=== PATIENT | male | born 1960 | race Caucasian/White ===

== ENCOUNTER 2025-08-06 15:00 | Inpatient (IN) ==
[2025-08-06] MEDS ORDERED: IOPAMIDOL 100 ML BOTTLE IV ONE ×2 (15:01)
[2025-08-06 15:46] LABS: Basophils # (Auto) 0.03 K/mcL (0.00-0.30); Basophils % (Auto) 0.2 % (0.0-2.0); Eosinophils # (Auto) 0 K/mcL (0.00-0.70); Eosinophils % (Auto) 0 % (0.0-7.0); Hematocrit 41.9 % (40.1-51.0); Hemoglobin 14.0 g/dL (13.7-17.5); Lymphocytes # (Auto) 1.01 K/mcL (1.50-4.80); Lymphocytes % (Auto) 5.7 % (15.5-49.0); Mean Corpuscular HGB Conc 33.4 g/dL (31.0-36.0); Monocytes # (Auto) 0.81 K/mcL (0.10-0.90); Monocytes % (Auto) 4.6 % (1.0-12.0); Neutrophils % (Auto) 89.0 % (38.0-78.0); Platelet Count 254 K/mcL (140-440); RBC 4.34 M/mcL (4.63-6.08); WBC 17.6 K/mcL (4.5-11.0)
[2025-08-06 16:07] LABS: ALT/SGPT 11 U/L (<40); AST/SGOT 37 U/L (<40); Albumin 3.7 gm/dL (3.2-5.2); Albumin/Globulin Ratio 1.1 (1.0-2.3); Alkaline Phosphatase 93 U/L (39-117); Anion Gap 13.0 (8.0-16.0); Bilirubin,Total 0.7 mg/dL (0.1-1.0); Blood Urea Nitrogen 16 mg/dL (8-23); Calcium 8.9 mg/dL (8.6-10.4); Carbon Dioxide 22 mmol/L (22-30); Chloride 101 mmol/L (96-108); Globulin 3.5 gm/dL (2.2-3.7); Glucose 127 mg/dL (70-105); Potassium 4.2 mmol/L (3.3-5.1); Sodium 136 mmol/L (133-145)
[2025-08-06] MEDS: 0.9 % SODIUM CHLORIDE 1,000 ML IV ONE (16:07)
[2025-08-06 16:41] LABS: Barbiturate Screen,Urine None detected; Benzodiazepines Screen,Urine None detected; Fentanyl, Urine Screen None Detected; Opiate Screen,Urine None detected; Oxycodone, Urine Screen None detected; Phencyclidine Screen,Urine None detected
[2025-08-06 16:54] LABS: Bacteria,Urine 0 /hpf (0); Bilirubin,Urine SMALL mg/dL (Negative); Calcium Oxalate Crystals,Urine Few /hpf; Color,Urine Yellow; Glucose,Urine (UA) NEGATIVE (Negative); Ketones,Urine >=80 mg/dL (Negative); Leukocyte Esterase,Urine NEGATIVE /uL (Negative); Mucus,Urine Many /hpf; PH,Urine 6.0 (5.0-9.0); Protein,Urine TRACE mg/dL (Negative); Specific Gravity,Urine >= 1.030 (1.000-1.035); Urobilinogen,Urine 1.0 mg/dL
[2025-08-06] MEDS: FUROSEMIDE 40 MG/4 ML VIAL IV ONE (17:57)
[2025-08-06] MEDS: FLEETS ADULT 1 DOSE ENEMA PR ONE (18:56)
[2025-08-06] MEDS ORDERED: POLYETHYLENE GLYCOL 3350 17 GM PACKET PO PRN (20:40)
[2025-08-06] MEDS ORDERED: MAGNESIUM SULFATE 2 GM/50 ML BAG IV PRN (20:40)
[2025-08-06] MEDS ORDERED: SENNOSIDES 1 TABLET PO PRN (20:40)
[2025-08-06] MEDS ORDERED: POTASSIUM CHLORIDE 20 MEQ TABLET PO PRN (20:40)
[2025-08-06] MEDS ORDERED: ACETAMINOPHEN 325 MG TABLET PO PRN (20:40)
[2025-08-06] MEDS ORDERED: IPRATROPIUM/ALBUTEROL 3 ML AMPUL.NEB NEB PRN (20:40)
[2025-08-06] MEDS ORDERED: POTASSIUM CHLORIDE 40 MEQ in DEXTROSE 5% IN WATER 500 ML IV PRN (20:40)
[2025-08-06] MEDS ORDERED: METOCLOPRAMIDE 10 MG/2 ML VIAL IV PRN (20:40)
[2025-08-06] MEDS ORDERED: PROPRANOLOL 40 MG TABLET PO PRN (20:44)
[2025-08-06] MEDS: POLYETHYLENE GLYCOL 3350 17 GM PACKET PO ONE (21:00)
[2025-08-06] MEDS: DOCUSATE SODIUM 100 MG CAPSULE PO SCH (21:00)
[2025-08-06] MEDS: TAMSULOSIN 0.4 MG CAPSULE PO SCH (21:00)
[2025-08-06] MEDS: GABAPENTIN 400 MG CAPSULE PO SCH (21:01)
[2025-08-06] MEDS: MIRTAZAPINE 15 MG TABLET PO SCH (21:01)
[2025-08-07 05:59] LABS: Hematocrit 40.5 % (40.1-51.0); Hemoglobin 13.3 g/dL (13.7-17.5); Mean Corpuscular HGB Conc 32.8 g/dL (31.0-36.0); Platelet Count 227 K/mcL (140-440); RBC 4.14 M/mcL (4.63-6.08); WBC 15.7 K/mcL (4.5-11.0)
[2025-08-07 06:21] LABS: ALT/SGPT 12 U/L (<40); AST/SGOT 34 U/L (<40); Albumin 3.5 gm/dL (3.2-5.2); Albumin/Globulin Ratio 1.0 (1.0-2.3); Alkaline Phosphatase 92 U/L (39-117); Anion Gap 10.0 (8.0-16.0); Bilirubin,Direct 0.4 mg/dL (<0.3); Bilirubin,Total 0.7 mg/dL (0.1-1.0); Blood Urea Nitrogen 15 mg/dL (8-23); Calcium 8.6 mg/dL (8.6-10.4); Carbon Dioxide 26 mmol/L (22-30); Chloride 99 mmol/L (96-108); Globulin 3.5 gm/dL (2.2-3.7); Glucose 107 mg/dL (70-105); Phosphorous 3.2 mg/dL (2.5-4.5); Potassium 3.9 mmol/L (3.3-5.1); Sodium 135 mmol/L (133-145); Triglycerides 100 mg/dL (<150); Uric Acid 7.0 mg/dL (2.5-8.0)
[2025-08-07] MEDS: LEVOTHYROXINE 25 MCG TABLET PO SCH (07:25)
[2025-08-07 07:42] LABS: RBC Morphology NORMAL (Normal)
[2025-08-07] MEDS ORDERED: LOSARTAN 50 MG TABLET PO SCH (09:00)
[2025-08-07] MEDS: FUROSEMIDE 40 MG/4 ML VIAL IV SCH (09:35)
[2025-08-07] MEDS: SPIRONOLACTONE 25 MG TABLET PO SCH (09:35)
[2025-08-07] MEDS: POLYETHYLENE GLYCOL 3350 17 GM PACKET PO SCH (09:36)
[2025-08-07] MEDS: ENOXAPARIN 40 MG/0.4 ML SYRINGE SQ SCH (09:36)
[2025-08-07] MEDS: METHYLPHENIDATE HCL 10 MG PO SCH (10:56)
[2025-08-07] MEDS: cefTRIAXone 1 GM VIAL IV SCH (11:45)
[2025-08-07] MEDS: ONDANSETRON 4 MG/2 ML VIAL IV PRN (11:47)
[2025-08-07] MEDS: AZITHROMYCIN 500 MG in DEXTROSE 5% IN WATER 250 ML IV SCH (11:51)
[2025-08-07] MEDS: TEMAZEPAM 15 MG CAPSULE PO PRN (21:21)
[2025-08-08 06:35] LABS: Basophils # (Auto) 0.02 K/mcL (0.00-0.30); Basophils % (Auto) 0.2 % (0.0-2.0); Eosinophils # (Auto) 0.38 K/mcL (0.00-0.70); Eosinophils % (Auto) 3.6 % (0.0-7.0); Hematocrit 42.8 % (40.1-51.0); Hemoglobin 13.7 g/dL (13.7-17.5); Lymphocytes # (Auto) 2.52 K/mcL (1.50-4.80); Lymphocytes % (Auto) 24.0 % (15.5-49.0); Mean Corpuscular HGB Conc 32.0 g/dL (31.0-36.0); Monocytes # (Auto) 0.51 K/mcL (0.10-0.90); Monocytes % (Auto) 4.9 % (1.0-12.0); Neutrophils % (Auto) 66.8 % (38.0-78.0); Platelet Count 240 K/mcL (140-440); RBC 4.27 M/mcL (4.63-6.08); WBC 10.5 K/mcL (4.5-11.0)
[2025-08-08] MEDS: METOPROLOL TARTRATE 5 MG/5 ML VIAL IV PRN (08:13)
[2025-08-08] MEDS ORDERED: APIXABAN 2.5 MG TABLET PO SCH (09:00)
[2025-08-08 09:20] LABS: ALT/SGPT 13 U/L (<40); AST/SGOT 24 U/L (<40); Albumin 3.3 gm/dL (3.2-5.2); Albumin/Globulin Ratio 0.9 (1.0-2.3); Alkaline Phosphatase 93 U/L (39-117); Anion Gap 13.0 (8.0-16.0); Bilirubin,Direct 0.2 mg/dL (<0.3); Bilirubin,Total 0.4 mg/dL (0.1-1.0); Blood Urea Nitrogen 20 mg/dL (8-23); Calcium 8.7 mg/dL (8.6-10.4); Carbon Dioxide 29 mmol/L (22-30); Chloride 96 mmol/L (96-108); Globulin 3.7 gm/dL (2.2-3.7); Glucose 110 mg/dL (70-105); Phosphorous 3.2 mg/dL (2.5-4.5); Potassium 3.2 mmol/L (3.3-5.1); Sodium 138 mmol/L (133-145); Triglycerides 118 mg/dL (<150); Uric Acid 8.1 mg/dL (2.5-8.0)
[2025-08-08] MEDS: METOPROLOL TARTRATE 25 MG TABLET PO SCH (09:52)
[2025-08-08] MEDS: POTASSIUM CHLORIDE 20 MEQ TABLET PO PRN (10:00)
[2025-08-08] MEDS: APIXABAN 5 MG TABLET PO SCH (21:00)
[2025-08-09 05:55] LABS: Basophils # (Auto) 0.03 K/mcL (0.00-0.30); Basophils % (Auto) 0.3 % (0.0-2.0); Eosinophils # (Auto) 0.42 K/mcL (0.00-0.70); Eosinophils % (Auto) 3.7 % (0.0-7.0); Hematocrit 41.4 % (40.1-51.0); Hemoglobin 13.8 g/dL (13.7-17.5); Lymphocytes # (Auto) 2.78 K/mcL (1.50-4.80); Lymphocytes % (Auto) 24.3 % (15.5-49.0); Mean Corpuscular HGB Conc 33.3 g/dL (31.0-36.0); Monocytes # (Auto) 0.57 K/mcL (0.10-0.90); Monocytes % (Auto) 5.0 % (1.0-12.0); Neutrophils % (Auto) 66.3 % (38.0-78.0); Platelet Count 283 K/mcL (140-440); RBC 4.26 M/mcL (4.63-6.08); WBC 11.4 K/mcL (4.5-11.0)
[2025-08-09 07:16] LABS: ALT/SGPT 18 U/L (<40); AST/SGOT 25 U/L (<40); Albumin 3.3 gm/dL (3.2-5.2); Albumin/Globulin Ratio 0.9 (1.0-2.3); Alkaline Phosphatase 89 U/L (39-117); Anion Gap 11.0 (8.0-16.0); Bilirubin,Total 0.3 mg/dL (0.1-1.0); Blood Urea Nitrogen 24 mg/dL (8-23); Calcium 8.8 mg/dL (8.6-10.4); Carbon Dioxide 25 mmol/L (22-30); Chloride 102 mmol/L (96-108); Globulin 3.7 gm/dL (2.2-3.7); Glucose 101 mg/dL (70-105); Potassium 3.7 mmol/L (3.3-5.1); Sodium 138 mmol/L (133-145)
[2025-08-09] MEDS ORDERED: LISINOPRIL 2.5 MG TABLET PO SCH (09:00)
[2025-08-09] MEDS: buPROPion 150 MG TAB.XL.24H PO SCH (11:51)
[2025-08-09] MEDS: FUROSEMIDE 40 MG TABLET PO SCH (15:35)
[2025-08-10 07:01] LABS: ALT/SGPT 18 U/L (<40); AST/SGOT 25 U/L (<40); Albumin 3.2 gm/dL (3.2-5.2); Albumin/Globulin Ratio 0.9 (1.0-2.3); Alkaline Phosphatase 85 U/L (39-117); Anion Gap 11.0 (8.0-16.0); Bilirubin,Total 0.3 mg/dL (0.1-1.0); Blood Urea Nitrogen 24 mg/dL (8-23); Calcium 8.7 mg/dL (8.6-10.4); Carbon Dioxide 25 mmol/L (22-30); Chloride 101 mmol/L (96-108); Globulin 3.7 gm/dL (2.2-3.7); Glucose 99 mg/dL (70-105); Potassium 3.8 mmol/L (3.3-5.1); Sodium 137 mmol/L (133-145)
[2025-08-10 07:23] LABS: Basophils # (Auto) 0.05 K/mcL (0.00-0.30); Basophils % (Auto) 0.5 % (0.0-2.0); Eosinophils # (Auto) 0.39 K/mcL (0.00-0.70); Eosinophils % (Auto) 3.5 % (0.0-7.0); Hematocrit 43.2 % (40.1-51.0); Hemoglobin 14.2 g/dL (13.7-17.5); Lymphocytes # (Auto) 2.73 K/mcL (1.50-4.80); Lymphocytes % (Auto) 24.8 % (15.5-49.0); Mean Corpuscular HGB Conc 32.9 g/dL (31.0-36.0); Monocytes # (Auto) 0.70 K/mcL (0.10-0.90); Monocytes % (Auto) 6.4 % (1.0-12.0); Neutrophils % (Auto) 64.2 % (38.0-78.0); Platelet Count 291 K/mcL (140-440); RBC 4.41 M/mcL (4.63-6.08); WBC 11.0 K/mcL (4.5-11.0)
[2025-08-10] MEDS ORDERED: buPROPion 150 MG TAB.XL.24H PO SCH (09:00)
[2025-08-11 06:45] LABS: Basophils # (Auto) 0.05 K/mcL (0.00-0.30); Basophils % (Auto) 0.5 % (0.0-2.0); Eosinophils # (Auto) 0.41 K/mcL (0.00-0.70); Eosinophils % (Auto) 3.7 % (0.0-7.0); Hematocrit 45.4 % (40.1-51.0); Hemoglobin 15.2 g/dL (13.7-17.5); Lymphocytes # (Auto) 2.76 K/mcL (1.50-4.80); Lymphocytes % (Auto) 25.2 % (15.5-49.0); Mean Corpuscular HGB Conc 33.5 g/dL (31.0-36.0); Monocytes # (Auto) 0.72 K/mcL (0.10-0.90); Monocytes % (Auto) 6.6 % (1.0-12.0); Neutrophils % (Auto) 62.8 % (38.0-78.0); Platelet Count 295 K/mcL (140-440); RBC 4.72 M/mcL (4.63-6.08); WBC 11.0 K/mcL (4.5-11.0)
[2025-08-11 07:06] LABS: ALT/SGPT 24 U/L (<40); AST/SGOT 27 U/L (<40); Albumin 3.4 gm/dL (3.2-5.2); Albumin/Globulin Ratio 0.9 (1.0-2.3); Alkaline Phosphatase 93 U/L (39-117); Anion Gap 11.0 (8.0-16.0); Bilirubin,Total 0.3 mg/dL (0.1-1.0); Blood Urea Nitrogen 26 mg/dL (8-23); Calcium 8.8 mg/dL (8.6-10.4); Carbon Dioxide 24 mmol/L (22-30); Chloride 102 mmol/L (96-108); Globulin 3.9 gm/dL (2.2-3.7); Glucose 96 mg/dL (70-105); Potassium 3.8 mmol/L (3.3-5.1); Sodium 137 mmol/L (133-145)
[2025-08-11] MEDS: LOSARTAN 25 MG TABLET PO SCH (08:34)
== END 2025-08-11 15:31 | disposition home health service (06) | DRG 291 ==
LOC: ED 15:00 → ICU 20:35
PROVIDERS: ADMIT Internal Medicine; ATTEND Internal Medicine